=== PATIENT | male | born 1955 | race Caucasian/White ===

== ENCOUNTER 2024-08-16 09:39 | Emergency (ER) | payer MEDICARE ==
[2024-08-16] MEDS ORDERED: Morphine 2 MG/ML SYRINGE IVPUSH PRN (09:57)
[2024-08-16] MEDS: Ondansetron 4 MG/2 ML SDV IVPUSH ONE (10:11)
[2024-08-16] MEDS: Ketorolac 30 MG/ML SDV IVPUSH ONE (10:11)
[2024-08-16] MEDS: Acetaminophen 500 MG Tab PO ONE (10:11)
[2024-08-16] MEDS: Lidocaine 4% Patch TOP ONE (10:12)
[2024-08-16 10:21] LABS: BASOPHILS ABSOLUTE AUTO 0.06 K/uL (0.00-0.20); BASOPHILS PERCENT AUTO 0.9 % (0.0-1.0); EOSINOPHILS ABSOLUTE AUTO 0.09 K/uL (0.00-0.45); EOSINOPHILS PERCENT AUTO 1.4 % (0.0-6.0); HEMATOCRIT 42.9 % (42.0-52.0); HEMOGLOBIN 14.8 g/dL (14.0-18.0); IMMATURE GRAN ABSOLUTE AUTO 0.02 K/uL (0.00-0.05); IMMATURE GRAN PERCENT AUTO 0.3 % (0.0-0.4); LYMPHOCYTES ABSOLUTE AUTO 2.02 K/uL (1.00-4.80); LYMPHOCYTES PERCENT AUTO 30.7 % (24.0-44.0); MEAN CORPUSCULAR HEMOGLOBIN 31.3 pg (28.0-32.0); MEAN CORPUSCULAR HGB CONC 34.5 g/dL (32.0-36.0); MEAN CORPUSCULAR VOLUME 90.7 fL (83.0-99.0); MEAN PLATELET VOLUME 11.7 fL (9.4-12.4); MONOCYTES ABSOLUTE AUTO 0.46 K/uL (0.00-0.80); NEUTROPHILS ABSOLUTE AUTO 3.92 K/uL (1.80-7.70); NEUTROPHILS PERCENT AUTO 59.7 % (41.0-71.0); PLATELET COUNT,PLT 157 K/uL (150-400); RED BLOOD CELL COUNT 4.73 M/uL (4.52-5.90); WHITE BLOOD CELL COUNT,WBC 6.57 K/uL (3.9-11.3)
[2024-08-16 11:11] LABS: A/G RATIO 1.1 (0.9-1.6); ALBUMIN 3.9 g/dL (3.4-5.0); CARBON DIOXIDE,CO2 26.6 mmol/L (21.0-32.0); CREATININE 1.1 mg/dL (0.8-1.3); EST CRCL DRUG DOSING (CG) 68.04 mL/min; POTASSIUM,K 3.9 mmol/L (3.5-5.1); PROTEIN TOTAL,TP 7.6 g/dL (6.4-8.2)
[2024-08-16] MEDS: Iopamidol 755 MG/ML 500 ML Multipack Bottle IVPUSH STA (12:40)
[2024-08-16 12:51] LABS: PRO B-TYPE NATRIUR PEPT,BNPPRO 196 pg/mL (0-125)
== END 2024-08-16 14:04 | disposition home or self-care (01) ==
LOC: MW.ED 09:39
DX: S22.42XA Multiple fractures of ribs, left side, initial encounter for closed fracture (principal); I49.1 Atrial premature depolarization; R79.89 Other specified abnormal findings of blood chemistry; R10.9 Unspecified abdominal pain; I48.91 Unspecified atrial fibrillation; E78.00 Pure hypercholesterolemia, unspecified; I10 Essential (primary) hypertension; Z91.040 Latex allergy status; Z88.0 Allergy status to penicillin; Z79.82 Long term (current) use of aspirin; Z79.899 Other long term (current) drug therapy; W10.9XXA Fall (on) (from) unspecified stairs and steps, initial encounter; Y93.89 Activity, other specified
CPT/HCPCS: 36415; 71260; 74177; 80053; 80307; 83880; 84484; 85025; 85610; 93005; 96374; 96375; 99284; A9270; J1100; J1885; J2405; Q9967; 93010